=== PATIENT | male | born 1965 | race Asian ===

== ENCOUNTER 2021-08-05 22:47 | Emergency (ER) | payer BC, OTHER ==
[~2021-08-05] VITALS: Ht 157.5 cm; Wt 63.5 kg
[2021-08-05 22:59] VITALS: BP 186/106
--- NOTE | 2021-08-05 22:59 | NUR ---
TO BED AMBULATORY
[2021-08-05] MEDS ORDERED: amLODIPine 5 MG TAB PO ONE (23:25)
[2021-08-05 23:43] LABS: BASOPHILS % (AUTO) 0.4 % (0.0-2.0); EOSINOPHILS # (AUTO) 0.1 K/uL (0-0.4); EOSINOPHILS % (AUTO) 1.4 % (0.0-4.0); HEMATOCRIT 37.3 % (36-52); HEMOGLOBIN 12.5 g/dL (12.0-18.0); LYMPHOCYTES # (AUTO) 2.3 K/uL (2.0-11.5); LYMPHOCYTES % (AUTO) 38.7 % (20.5-51.1); MEAN CORPUSCULAR HEMOGLOBIN 30 pg (27-31); MEAN CORPUSCULAR HGB CONC 34 g/dL (33-37); MEAN CORPUSCULAR VOLUME 89.7 fL (80-94); MONOCYTES # (AUTO) 0.6 K/uL (0.8-1.0); MONOCYTES % (AUTO) 9.3 % (1.7-9.3); NEUTROPHILS % (AUTO) 50.2 % (42.2-75.2); PLATELET COUNT (AUTO) 291 K/uL (140-450); RED BLOOD CELL COUNT(AUTO) 4.16 MIL/uL (4.20-6.10); RED CELL DISTRIBUTION WIDTH 12.9 % (11.6-13.7)
--- NOTE | 2021-08-05 23:45 | NUR ---
55 YO M BIB SELF WITH C/C OF HIGH BLOOD PRESSURE X1DAY. PT STATED HE TOOK 3 DOSES OF BENAZIPRIL THROUGHOUT THE DAY AND BP WAS STILL ELEVATED. PT STATES HE FEELS STRESSED AND HAS BEEN WORKING A LOT LATELY. PT STATED HIS MEDICATION HAS BEEN INCREASED IN THE PAST. +HEADACHE, DENIES VISION CHANGES AND DIZZINESS. ALL NEEDS MET AT THIS TIME, PT IS ON [employer]. BED LOCKED IN LOWEST POSITION, SIDE RAILS X1. HX:HTN, DM, HDL RX:METFORMIN, BENAZPRILN AND SIMVASTATIN DENIES ALLERG
[2021-08-06 00:13] LABS: ALBUMIN 3.7 g/dL (3.4-5.0); ANION GAP 9.2 (8-16); CARBON DIOXIDE 31.3 mmol/L (21-32); CREATININE 0.9 mg/dL (0.6-1.3); POTASSIUM 3.5 mmol/L (3.5-5.1); TOTAL BILIRUBIN 0.3 mg/dL (0.0-1.0)
[2021-08-06] MEDS ORDERED: AMLO5TAB PO (00:34)
[2021-08-06 01:00] VITALS: BP 177/96
--- NOTE | 2021-08-06 01:00 | NUR ---
Patient discharged with v/s stable. Written and verbal after care instructions given and explained. Patient alert, oriented and verbalized understanding of instructions. Ambulatory with steady gait. All questions addressed prior to discharge. ID band removed. Patient advised to follow up with PMD. Rx of AMLODIPINE given. Patient educated on indication of medication including possible reaction and side effects. Opportunity to ask questions provided and answered.
== END 2021-08-06 01:00 | disposition home or self-care (01) ==
LOC: MED 22:47
DX: I10 Essential (primary) hypertension (principal); E11.9 Type 2 diabetes mellitus without complications; E78.00 Pure hypercholesterolemia, unspecified
CPT/HCPCS: 36415; 80053; 84484; 85025; 93005; 99284

== ENCOUNTER 2024-02-09 10:36 | Emergency (ER) | payer OTHER ==
[~2024-02-09] VITALS: Ht 157.5 cm; Wt 65.9 kg
[~2024-02-09 10:36] MED LIST: AMLO5TAB PO
[2024-02-09 10:48] VITALS: BP 174/93; PULSE 70; RESP 16; TEMP 98.3; O2SAT 98
[2024-02-09 12:08] LABS: BASOPHILS % (AUTO) 0.5 % (0.0-2.0); EOSINOPHILS % (AUTO) 0.9 % (0.0-4.0); HEMATOCRIT 39.5 % (36-52); HEMOGLOBIN 13.5 g/dL (12.0-18.0); LYMPHOCYTES # (AUTO) 1.6 K/uL (2.0-11.5); LYMPHOCYTES % (AUTO) 32.6 % (20.5-51.1); MEAN CORPUSCULAR HEMOGLOBIN 31 pg (27-31); MEAN CORPUSCULAR HGB CONC 34 g/dL (33-37); MEAN CORPUSCULAR VOLUME 89.5 fL (80-94); MONOCYTES # (AUTO) 0.3 K/uL (0.8-1.0); MONOCYTES % (AUTO) 6.5 % (1.7-9.3); NEUTROPHILS # (AUTO) 2.9 K/uL (1.8-7.7); NEUTROPHILS % (AUTO) 59.5 % (42.2-75.2); PLATELET COUNT (AUTO) 295 K/uL (140-450); RED BLOOD CELL COUNT(AUTO) 4.41 MIL/uL (4.20-6.10); RED CELL DISTRIBUTION WIDTH 13.5 % (11.6-13.7); WHITE BLOOD COUNT (AUTO) 4.8 K/uL (4.8-10.8)
[2024-02-09 12:16] LABS: ANION GAP 10.3 (8-16); CALCIUM 9.1 mg/dL (8.5-10.1); CARBON DIOXIDE 31.2 mmol/L (21-32); POTASSIUM 3.5 mmol/L (3.5-5.1)
[2024-02-09 12:43] VITALS: BP 160/82; PULSE 66; RESP 16; TEMP 98.3; O2SAT 98
== END 2024-02-09 12:43 | disposition home or self-care (01) ==
LOC: MED 10:36
DX: I10 Essential (primary) hypertension (principal); E11.9 Type 2 diabetes mellitus without complications; Z79.899 Other long term (current) drug therapy
CPT/HCPCS: 36415; 80048; 81002; 82948; 84484; 85025; 93005; 99284